=== PATIENT | male | born 1935 | race Asian ===

== ENCOUNTER 2016-12-07 11:04 | Emergency (ER) | payer MEDICARE, BC ==
[~2016-12-07] VITALS: Ht 175.3 cm; Wt 81.6 kg
[~2016-12-07 11:04] MED LIST: ALLO100T PO; AMIO200T2 PO; ASPI-524 PO; ATOR40TA PO; CALC-461 PO; CARV25TA2 PO; CYCL25CA7 PO; DOCU-25 PO; FURO-152 PO; LEVO100T PO; MYCO250C PO; NIAC500T5 PO; OMEG1CAP55 PO; POTA20TA11 PO; VITA1TAB18 PO
[2016-12-07 11:38] LABS: BASOPHILS % (AUTO) 0.3 % (0.0-2.0); EOSINOPHILS # (AUTO) 0.1 K/uL (0.0-0.7); EOSINOPHILS % (AUTO) 1.3 % (0.0-7.0); HEMATOCRIT 35.9 % (40-50); HEMOGLOBIN 11.3 G/DL (14.0-18.0); LYMPHOCYTES # (AUTO) 0.8 K/UL (0.8-4.8); LYMPHOCYTES % (AUTO) 10.1 % (20.5-51.5); MEAN CORPUSCULAR HEMOGLOBIN 29.3 UUG (27.0-31.0); MEAN CORPUSCULAR HGB CONC 32 g/dL (32.0-37.0); MEAN CORPUSCULAR VOLUME 92.7 FL (82.0-92.0); MONOCYTES # (AUTO) 0.6 K/UL (0.1-1.30); NEUTROPHILS # (AUTO) 6.6 K/UL (1.8-8.9); NEUTROPHILS % (AUTO) 81.3 % (38.5-71.5); PLATELET COUNT (AUTO) 164 K/UL (150-450); RED BLOOD CELL COUNT(AUTO) 3.87 MIL/UL (4.7-6.1); WHITE BLOOD COUNT (AUTO) 8.1 K/UL (4.0-11.2)
[2016-12-07 11:52] LABS: CARBON DIOXIDE 27 mmol/L (21-32); CHLORIDE 107 mmol/L (98-107); CREATININE 2.1 mg/dL (0.6-1.3); GLUCOSE 216 mg/dL (74-106); POTASSIUM 3.6 mmol/L (3.5-5.1); UREA NITROGEN, BLOOD 24 mg/dL (7-18)
--- NOTE | 2016-12-07 13:35 | NUR ---
Patient discharged to home in stable conditon with daughter. Written and verbal after care instructions given. Patient and daughter verbalizes understanding of instructions. Stressed follow up for wound check or return to ER for worsening s/s.
== END 2016-12-07 13:38 | disposition home or self-care (01) ==
LOC: ER 11:06
DX: S41.111A Laceration without foreign body of right upper arm, initial encounter (principal); S40.811A Abrasion of right upper arm, initial encounter; S01.21XA Laceration without foreign body of nose, initial encounter; Z79.82 Long term (current) use of aspirin; I10 Essential (primary) hypertension; M10.9 Gout, unspecified; Z88.8 Allergy status to other drugs, medicaments and biological substances; E11.9 Type 2 diabetes mellitus without complications; W01.0XXA Fall on same level from slipping, tripping and stumbling without subsequent striking against object, initial encounter; Y93.89 Activity, other specified; Y92.9 Unspecified place or not applicable; Y99.9 Unspecified external cause status
CPT/HCPCS: 36415; 70030-TC; 70450; 85025; 85730; 93005; A4663

== ENCOUNTER 2016-12-09 10:17 | Emergency (ER) | payer MEDICARE, BC ==
[~2016-12-09] VITALS: Ht 172.7 cm; Wt 72.6 kg
[2016-12-09] MEDS ORDERED: TDAP DIPH,PERTUSS,TET VAC/PF 0.5 ML DISP.SYRIN IM ONE ×2 (10:45)
--- NOTE | 2016-12-09 10:52 | NUR ---
Patient discharged to home in stable conditon. Written and verbal after care instructions given. Patient verbalizes understanding of instructions.
== END 2016-12-09 10:53 | disposition home or self-care (01) ==
LOC: ER 10:17
DX: S41.111D Laceration without foreign body of right upper arm, subsequent encounter (principal); E78.5 Hyperlipidemia, unspecified; E03.9 Hypothyroidism, unspecified; E11.9 Type 2 diabetes mellitus without complications; M10.9 Gout, unspecified; Z79.82 Long term (current) use of aspirin; Z88.8 Allergy status to other drugs, medicaments and biological substances; X58.XXXD Exposure to other specified factors, subsequent encounter; Y99.8 Other external cause status; Y92.89 Other specified places as the place of occurrence of the external cause; I10 Essential (primary) hypertension
CPT/HCPCS: 90715; A4663

== ENCOUNTER 2017-11-09 13:29 | Emergency (ER) | payer MEDICARE, BC ==
[~2017-11-09] VITALS: Ht 175.3 cm; Wt 79.4 kg
[~2017-11-09 13:29] MED LIST changes: +DOCU-141 PO; -DOCU-25 PO
--- NOTE | 2017-11-09 14:54 | NUR ---
Patient is resting comfortably on gurney with eyes closed. PATIENT IS PAIN FREE AT THIS TIME.
--- NOTE | 2017-11-09 15:11 | NUR ---
Patient discharged to home in stable conditon & steady gait. Written and verbal after care instructions given to patient. Patient verbalizes understanding of instructions.
== END 2017-11-09 15:11 | disposition home or self-care (01) ==
LOC: ER 13:31
DX: S01.411A Laceration without foreign body of right cheek and temporomandibular area, initial encounter (principal); E03.9 Hypothyroidism, unspecified; E11.9 Type 2 diabetes mellitus without complications; I10 Essential (primary) hypertension; M10.9 Gout, unspecified; Z79.82 Long term (current) use of aspirin; Z94.0 Kidney transplant status; M48.02 Spinal stenosis, cervical region; W01.0XXA Fall on same level from slipping, tripping and stumbling without subsequent striking against object, initial encounter; Y92.89 Other specified places as the place of occurrence of the external cause; Y93.89 Activity, other specified; Y99.8 Other external cause status
CPT/HCPCS: 70450; 70486; 72125; A4217; A4663; J3490

== ENCOUNTER 2017-11-11 11:05 | Emergency (ER) | payer MEDICARE, BC ==
[~2017-11-11] VITALS: Ht 175.3 cm; Wt 79.4 kg
--- NOTE | 2017-11-11 12:00 | NUR ---
Patient discharged to home in stable conditon. Written and verbal after care instructions given to patient. Patient verbalizes understanding of instructions.
== END 2017-11-11 12:01 | disposition home or self-care (01) ==
LOC: ER 11:05
DX: S01.81XD Laceration without foreign body of other part of head, subsequent encounter (principal); S51.811D Laceration without foreign body of right forearm, subsequent encounter; M10.9 Gout, unspecified; I10 Essential (primary) hypertension; E11.9 Type 2 diabetes mellitus without complications; E03.9 Hypothyroidism, unspecified; Z79.82 Long term (current) use of aspirin; Z94.0 Kidney transplant status; W01.0XXD Fall on same level from slipping, tripping and stumbling without subsequent striking against object, subsequent encounter; Y92.89 Other specified places as the place of occurrence of the external cause; Y93.89 Activity, other specified; Y99.8 Other external cause status
CPT/HCPCS: A4663

== ENCOUNTER 2018-08-17 15:01 | Emergency (ER) | payer BC, MEDICARE ==
[~2018-08-17] VITALS: Ht 172.7 cm; Wt 78.9 kg
[~2018-08-17 15:01] MED LIST changes: -AMIO200T2 PO; +AMIO200T4 PO
--- NOTE | 2018-08-17 15:25 | NUR ---
PT A/OX4, PRESENTS TO THE ER W/ FAMILY MEMBER. 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 PT DENIES HEAD INJURY/LOC. UPON ASSESSMENT, PT PRESENTS W/ A SKIN TEAR ON THE R FOREARM APPROXIMATELY 10 CM IN LENGTH AND A SKIN TEAR ON LLE APPROXIMATELY 5 CM IN WIDTH. NO BLEEDING FROM EITHER SKIN TEAR NOTED. NO DEFORMITIES OF THE EXTREMITIES NOTED. PT VS HYPOTENSIVE AND BARDYCARDIC. ER MD AWARE. PT DENIES PAIN, C/P, SOB, N/V/D, DIZZINESS, HEADACHE. ER MD AT BEDSIDE FOR MSE.
--- NOTE | 2018-08-17 15:28 | NUR ---
BLE PITTING EDEMA NOTED.
--- NOTE | 2018-08-17 15:32 | NUR ---
PT AND HIS DO NOT REMEMBER WHAT WAS THE CHANGES WITH PT's HOME MEDICATION SINCE LAST VISIT TO [facility] ER. PT's PROMISED TO BRING PT's MEDICATION LIST LATER. DR KIM NOTIFIED.
[2018-08-17 15:52] LABS: BASOPHILS % (AUTO) 0.3 % (0.0-2.0); EOSINOPHILS % (AUTO) 0.5 % (0.0-7.0); HEMATOCRIT 25.2 % (36.7-47.1); HEMOGLOBIN 8.2 g/dL (12.5-16.3); LYMPHOCYTES # (AUTO) 0.5 K/uL (20.0-40.0); LYMPHOCYTES % (AUTO) 6.4 % (20.5-51.5); MEAN CORPUSCULAR HEMOGLOBIN 29.3 uug (23.8-33.4); MEAN CORPUSCULAR HGB CONC 33 g/dL (32.5-36.3); MEAN CORPUSCULAR VOLUME 89.9 fL (73.0-96.2); MONOCYTES # (AUTO) 0.3 K/uL (2.0-10.0); MONOCYTES % (AUTO) 4.1 % (0.0-11.0); NEUTROPHILS # (AUTO) 6.7 K/uL (1.8-8.9); NEUTROPHILS % (AUTO) 88.7 % (38.5-71.5); PLATELET COUNT (AUTO) 100 K/uL (152-348); WHITE BLOOD COUNT (AUTO) 7.6 K/uL (3.6-10.2)
[2018-08-17 15:55] LABS: CARBON DIOXIDE 25 mmol/L (21-32); CHLORIDE 103 mmol/L (98-107); GLUCOSE 171 mg/dL (74-106); POTASSIUM 4.4 mmol/L (3.5-5.1)
[2018-08-17 16:00] LABS: UREA NITROGEN, BLOOD 90 mg/dL (7-18)
[2018-08-17 16:01] LABS: ALANINE AMINOTRANSFERASE 31 U/L (16-63); ALKALINE PHOSPHATASE 74 U/L (50-136); ASPARTATE AMINOTRANSFERASE 21 U/L (15-37); BILIRUBIN,TOTAL 0.5 mg/dL (0.2-1.0); TOTAL PROTEIN, SERUM 5.7 g/dL (6.4-8.2)
--- NOTE | 2018-08-17 16:05 | NUR ---
ORAL PATHOLOGIST AT BEDSIDE.
--- NOTE | 2018-08-17 16:10 | NUR ---
MIGUELITO VEGA AT BEDSIDE FOR PT UPDATE.
--- NOTE | 2018-08-17 16:27 | NUR ---
PT WAS D/C'd TO HOME AFTER DR KIM RE-EVALUATION. D/C INSTRUCTIONS GIVEN TO THE PT AND TO HIS .
[2018-08-17 16:29] VITALS: BP 101/59
== END 2018-08-17 16:49 | disposition home or self-care (01) ==
LOC: ER 15:01
DX: S51.811A Laceration without foreign body of right forearm, initial encounter (principal); S81.812A Laceration without foreign body, left lower leg, initial encounter; R53.1 Weakness; I12.9 Hypertensive chronic kidney disease with stage 1 through stage 4 chronic kidney disease, or unspecified chronic kidney disease; E11.22 Type 2 diabetes mellitus with diabetic chronic kidney disease; N18.4 Chronic kidney disease, stage 4 (severe); E03.9 Hypothyroidism, unspecified; E78.5 Hyperlipidemia, unspecified; Z88.1 Allergy status to other antibiotic agents; Z88.8 Allergy status to other drugs, medicaments and biological substances; Z79.82 Long term (current) use of aspirin; Z79.899 Other long term (current) drug therapy; W18.30XA Fall on same level, unspecified, initial encounter; Y93.89 Activity, other specified; Y92.89 Other specified places as the place of occurrence of the external cause; Y99.8 Other external cause status
CPT/HCPCS: 36415; 85025; A4217; A4663